=== PATIENT | male | born 2000 | race African-American/Black ===

== ENCOUNTER 2023-07-31 15:37 | Emergency (ER) | payer SELFPAY | END 2023-07-31 16:19 | disposition home or self-care (01) | LOC: CSHERS 15:37 | DX: S80.01XA Contusion of right knee, initial encounter (principal); S80.02XA Contusion of left knee, initial encounter; S09.90XA Unspecified injury of head, initial encounter; V19.9XXA Pedal cyclist (driver) (passenger) injured in unspecified traffic accident, initial encounter ==